=== PATIENT | male | born 1980 | race Hispanic/Latino ===

== ENCOUNTER 2017-08-16 07:33 | Emergency (ER) | payer OTHER ==
[2017-08-16 07:39] VITALS: BMI 30.1
[2017-08-16 07:45] VITALS: BP 151/80; PULSE 76; RESP 19; TEMP 97.5; O2SAT 100
--- NOTE | 2017-08-16 07:53 | ED PDOC ---
Arrival/HPI - General Historian: Patient - History of Present Illness Time/Duration: 24 hours Symptom Onset: Sudden Symptom Course: Unchanged Severity Level: Mild <Juan Leonard - Last Filed: 08/16/17 08:01> <Son Zuniga P - Last Filed: 08/16/17 17:32> - General Chief Complaint: Upper Extremity Problem/Injury Time Seen by Provider: 08/16/17 07:34 - History of Present Illness Narrative History of Present Illness (Text): 08/16/17 07:49 This is a 36 yo male with no past medical hx presenting with chief complaint of left elbow pain. Pain began last night. Patient says he started to notice his elbow was becoming swollen and red. This has never happened before. It does affect only his left elbow. He does report 1 week ago falling down the stairs and hurting his elbow but no immediate redness or swelling. He denies fevers, chills, or other systemic symptoms. He does not have any reduced range of motion. PMH: None PSH: eye surgery (when pt was 4 or 5 years old; cannot recall the reason) Allergies: NKDA FH: Denies Home meds: Denies Social hx: Denies smoking, drinking, drug use. 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 (Juan Leonard) Past Medical History - Provider Review Nursing Documentation Reviewed: Yes - Travel History Have you recently traveled outside [place] w/in the past 3 mons?: No - Past History Past History: No Previous - Infectious Disease Hx of Infectious Diseases: None - Tetanus Immunization Tetanus Immunization: Unknown - Psychiatric Hx Substance Use: No <Juan Leonard - Last Filed: 08/16/17 08:01> Family/Social History - Physician Review Nursing Documentation Reviewed: Yes Family/Social History: No Known Family HX Smoking Status: Never Smoked Hx Alcohol Use: Yes Frequency of alcohol use: Socially Hx Substance Use: No Hx Substance Use Treatment: No <Juan Leonard - Last Filed: 08/16/17 08:01> Allergies/Home Meds <Juan Leonard - Last Filed: 08/16/17 08:01> <Son Zuniga P - Last Filed: 08/16/17 17:32> Allergies/Adverse Reactions: Allergies No Known Allergies Allergy (Verified 08/16/17 07:38) Review of Systems - Review of Systems Constitutional: absent: Fevers, Night Sweats Eyes: absent: Vision Changes, Photophobia ENT: absent: Hearing Changes, Tinnitus Respiratory: absent: SOB, Cough Cardiovascular: absent: Chest Pain, Palpitations Gastrointestinal: absent: Abdominal Pain, Stool Changes Genitourinary Male: absent: Dysuria, Frequency Musculoskeletal: Arthralgias. absent: Back Pain Skin: absent: Rash, Pruritis Neurological: absent: Headache, Dizziness Endocrine: absent: Diaphoresis, Polyuria Hemo/Lymphatic: absent: Adenopathy, Easy Bleeding Psychiatric: absent: Anxiety, Depression <Juan Leonard - Last Filed: 08/16/17 08:01> Physical Exam Vital Signs Reviewed: Yes Mental Status: Positive for: Alert and Oriented X 3 - Systems Exam Head: Present: Atraumatic, Normocephalic Pupils: Present: PERRL Extroacular Muscles: Present: EOMI Neck: Present: Normal Range of Motion Respiratory/Chest: Present: Clear to Auscultation. No: Respiratory Distress Cardiovascular: Present: Regular Rate and Rhythm, Normal S1, S2 Abdomen: No: Tenderness, Distention, Peritoneal Signs Upper Extremity: Present: Normal ROM (left elbow bursitis with swelling and erythema; full range of motion), Swelling, Erythema, Other (small scab on left elbow ). No: Normal Inspection Lower Extremity: Present: Normal Inspection. No: Edema Neurological: Present: CN II-XII Intact, Speech Normal Skin: Present: Warm, Dry Psychiatric: Present: Alert, Oriented x 3, Normal Insight, Normal Concentration <Juan Leonard - Last Filed: 08/16/17 08:01> Vital Signs Temp Pulse Resp BP Pulse Ox 08/16/17 07:43 97.5 F L 76 19 151/80 H 100 Medical Decision Making <Juan Leonard - Last Filed: 08/16/17 08:01> <Son Zuniga - Last Filed: 08/16/17 17:32> ED Course and Treatment: Pt has mild erythema and swelling over the bursa of the left elbow. His ROM of the elbow is full without pain. I feel this is most likely a non-infectious bursitis however will cover with tmp/smx. (Son Zuniga) - Medication Orders Current Medication Orders: Discontinued Medications Ibuprofen (Motrin Tab) 800 mg PO STAT STA Stop: 08/16/17 07:49 Last Admin: 08/16/17 08:01 Dose: 800 mg MAR Pain/Vitals Document 08/16/17 08:01 LA (Rec: 08/16/17 08:04 LA [id number]) Pain Reassessment Is This A Pain ReAssessment? No Sleep Is patient sleeping during reassessment? Yes Pain Scale Used Pain Scale Used Numeric Location Left, Right or Bilateral Left Pain Location Body Site Elbow Description Pressure Intensity 2 Scale Used Numeric Pain Behavior Guarding Disposition/Present on Arrival - Present on Arrival History of DVT/PE: No History of Uncontrolled Diabetes: No Urinary Catheter: No History of Decub. Ulcer: No History Surgical Site Infection Following: None <Juan Leonard - Last Filed: 08/16/17 08:01> - Present on Arrival Any Indicators Present on Arrival: No - Disposition Have Diagnosis and Disposition been Completed?: Yes Disposition Time: 08:16 <Son Zuniga - Last Filed: 08/16/17 17:32> - Disposition Diagnosis: Olecranon bursitis of left elbow Disposition: HOME/ ROUTINE Condition: STABLE Discharge Instructions (ExitCare): Elbow Bursitis (ED) Prescriptions: Sulfamethoxazole/Trimethoprim [Bactrim DS 800 mg-160 mg] 1 tab PO BID #20 tab Referrals: Clary SINHA,Derek Jones MD [Primary Care Provider] - Follow up with primary Forms: [id number] (Angolan)
== END 2017-08-16 08:15 | disposition home or self-care (01) ==
LOC: ED 07:33
DX: M70.22 Olecranon bursitis, left elbow (principal)